=== PATIENT | female | born 1975 | race Caucasian/White ===

== ENCOUNTER 2019-05-10 09:50 | Day surgery (SDC) | payer OTHER ==
[~2019-05-10 09:50] MED LIST: CEPH250A PO; ELINEST1 EACH PO; HYDACE5 PO; KETO10 PO; OMEP10ER PO; OMEPRAZOLE MAGN20 MG PO; OXYACE5T PO; PROM25 PO; Percocet 5-3251 EACH PO; [UNRECOGNIZED DRUG - OTHER]
== END 2019-05-10 22:41 | disposition home or self-care (01) ==
LOC: MOI MAM 09:50
DX: N64.89 Other specified disorders of breast (principal)
CPT/HCPCS: 19081; 88305

== ENCOUNTER → 2019-06-20 | Outpatient (CLI) | payer OTHER | END | disposition home or self-care (01) | LOC: LAB 12:02 → LAB SHORT 12:02 → LAB FUT 06-15 12:30 | DX: K21.9 Gastro-esophageal reflux disease without esophagitis (principal) | CPT/HCPCS: 87338 ==